=== PATIENT | male | born 1970 | race Caucasian/White ===

== ENCOUNTER 2017-05-16 11:52 | Emergency (ER) | payer MEDICAID ==
[2017-05-16 11:58] VITALS: BP 110/80; BMI 42.2
--- NOTE | 2017-05-16 12:45 | DR.GENAD ---
HPI - PCP Primary Care Physician: reg - Complaint/Symptoms Chief Complaint:: patient stated for the last 2 days he has been having epigastirc pain and its hard to swollow. - Source History Provided: Patient - Mode of Arrival Mode of Arrival: Ambulatory - Timing Onset of Chief Complaint: 05/14/17 PMH - PMH Past Medical History: Yes Past Medical History: Asthma, Diabetes, Hypertension, Schizophrenia Past Surgical History: Yes - Family History History of Family Medical Conditions: Yes Family Medical History: Diabetes Mellitus, Cancer, [place], Coronary Artery Disease, Heart Failure, Sudden Cardiac , Hypertension - Social History Does patient currently use any type of tobacco product: No Have you used tobacco products in the last 12 months: No Type of Tobacco Use: None Does any household member use tobacco: No Alcohol Use: Rarely Do you use any recreational Drugs:: Yes (thc) Lives With: Family Lives Where: Home - infectious screening In the last 2 months have you had wt loss of >10#?: NO Have you had fever, night sweats or hemotysis?: No Have you traveled outside the country in the last 6 months?: No Isolation: Standard ROS - Review of Systems Eyes: No Symptoms Reported ENTM: No Symptoms Reported Respiratoy: No Symptoms Reported Cardiovascular: No Symptoms Reported Gastrointestinal/Abdominal: No Symptoms Reported Genitourinary: No Symptoms Reported Neurological: No Symptoms Reported Musculoskeletal: No Symptoms Reported Integumentary: No Symptoms Reported Hematologic/Lymphatic: No Symptoms Reported Endocrine: No Symptoms Reported Psychiatric: No Symptoms Reported All Other Systems: Reviewed and Negative PE - Vital Signs Vitals: Temperature 98.0 F Pulse Rate 96 Respiratory Rate 16 Blood Pressure [Right Arm] 147/82 Blood Pressure 110/80 O2 Sat by Pulse Oximetry 99 - General Limitations: No Limitations General Appearance: Alert, In No Apparent Distress - Head Head Exam: Normal Inspection, Atraumatic - Eyes Eye exam: Normal Appearance, PERRL, EOMI - ENT ENT Exam: Normal Exam External Ear Exam: Normal External Inspection TM/Canal Exam: Bilateral Normal Nose Exam: Normal Nose Exam Mouth Exam: Normal Inspection Throat Exam: Normal Inspection - Neck Neck Exam: Normal Inspection - Chest Chest Inspection: Normal Inspection - Respiratory Respiratory Exam: Normal Lung Sounds Bilat Respiratory Exam: Bilateral Clear to Auscultation - Cardiovascular Cardiovascular Exam: Regular Rate, Normal Rhythm - Abdominal Exam Abdominal Exam: Normal Inspection Abdominal Tenderness: Epigastrium - Extremities Extremities Exam: Normal Inspection - Back Back Exam: Normal Inspection - Neurologic Neurological Exam: Alert, Oriented X3, CN II-XII Intact - Psychiatric Psychiatric Exam: Normal Affect - Skin Skin Exam: Warm ROR - Labs Reviewed Result Diagrams: 05/16/17 12:48 05/16/17 12:48 Laboratory: WBC 13.3 X10^3/uL (3.6-10.0) H 05/16/17 12:48 RBC 5.25 X10^6/uL (4.7-6.0) 05/16/17 12:48 Hgb 14.2 g/dL (13.5-18.0) 05/16/17 12:48 Hct 41.2 % (42.0-54.0) L 05/16/17 12:48 MCV 78.5 fL (80.0-100.0) L 05/16/17 12:48 MCH 27.0 pg (27.0-34.0) 05/16/17 12:48 MCHC 34.4 g/dL (33.0-35.0) 05/16/17 12:48 RDW 14.6 % (11.6-16.5) 05/16/17 12:48 Plt Count 350 X10^3/uL (150.0-450.0) 05/16/17 12:48 MPV 7.3 fL (7.4-11.0) L 05/16/17 12:48 Neut % 66.7 % (42.0-75.0) 05/16/17 12:48 Lymph % 23.0 % (21.0-51.0) 05/16/17 12:48 [place] % 8.0 % (0.0-13.0) 05/16/17 12:48 Eos % 1.3 % (0.9-2.9) 05/16/17 12:48 Baso % 1.0 % (0.2-1.0) 05/16/17 12:48 Neut # 8.9 x10^3/uL (2.2-4.8) H 05/16/17 12:48 Lymph # 3.1 X10^3/uL (1.3-2.9) H 05/16/17 12:48 [place] # 1.1 x10^3/uL (0.3-0.8) H 05/16/17 12:48 Eos # 0.2 x10^3/uL (0.0-0.2) 05/16/17 12:48 Baso # 0.1 X10^3/uL (0.0-0.1) 05/16/17 12:48 Absolute Nucleated RBC 0.0 /100WBC 05/16/17 12:48 Sodium 140 mmol/L (136-145) 05/16/17 12:48 Corrected Sodium 141 mmol/L (136-145) 05/16/17 12:48 Potassium 4.0 mmol/L (3.5-5.1) 05/16/17 12:48 Chloride 103 mmol/L (98-107) 05/16/17 12:48 Carbon Dioxide 27.9 mmol/L (21-32) 05/16/17 12:48 BUN 17 mg/dL (7-18) 05/16/17 12:48 Creatinine 1.35 mg/dL (0.70-1.30) H 05/16/17 12:48 Est GFR (MDRD) Af Amer > 60 (>60) 05/16/17 12:48 Est GFR (MDRD) Non-Af 60 (>60) 05/16/17 12:48 Glucose 129 mg/dL (65-99) H 05/16/17 12:48 Calcium 9.1 mg/dL (8.5-10.1) 05/16/17 12:48 Corrected Calcium TNP 05/16/17 12:48 Total Bilirubin 0.30 mg/dL (0.2-1.0) 05/16/17 12:48 AST 22 Units/L (15-37) 05/16/17 12:48 ALT 30 Units/L (12-78) 05/16/17 12:48 Alkaline Phosphatase 52 Units/L (46-116) 05/16/17 12:48 C-Reactive Protein 14.90 mg/L (0-3.0) H 05/16/17 12:48 Total Protein 7.7 g/dL (6.4-8.2) 05/16/17 12:48 Albumin 3.7 g/dL (3.4-5.0) 05/16/17 12:48 Globulin 4.0 g/dL (2.5-4.5) 05/16/17 12:48 Albumin/Globulin Ratio 0.9 Ratio (1.1-2.1) L 05/16/17 12:48 Amylase 34 Units/L (25-115) 05/16/17 12:48 Lipase 122 Units/L (73-393) 05/16/17 12:48 H. pylori IgG Antibody Negative (NEGATIVE) 05/16/17 12:48 - XRAY XRAY Interpreted by: Radiologist (The visualized ortions of the lung bases are unremarkable. Diffuse fatty infiltration ofthe liver. No obvious liver lesions. A LARGE gallstone is again seen within the gallbladder without secondary sings to suggest cholecycstitis. The spleen, pancreas, and adrenals appear normal. 2.6cm left interpolar hypodense lesion appears unchanged and has Hounsfield units consistent with fluid. Other bilateral too small to characterize hypodense lesions. Punctate nonobstructing left inferior renal pole stone. Limited evaluation of the large yadira and small bowel secondary to collapse of oral contrast. Diverticulosis without evidence of diverticulitis. Remarining large and small bowel appear normal.) - Diagnosis Discharge Problem: Fatty infiltration of liver, Impacted gallstone of gallbladder, renal stones inferior pole left kidney - Discharge Plan Condition: Stable - Follow ups/Referrals Follow ups/Referrals: Yong Genao [Primary Care Provider] - 3 days - Instructions
[2017-05-16 13:07] LABS: BASOPHILS # (AUTO) 0.1 X10^3/uL (0.0-0.1); EOSINOPHILS # (AUTO) 0.2 x10^3/uL (0.0-0.2); EOSINOPHILS % (AUTO) 1.3 % (0.9-2.9); HEMATOCRIT 41.2 % (42.0-54.0); HEMOGLOBIN 14.2 g/dL (13.5-18.0); LYMPHOCYTES # (AUTO) 3.1 X10^3/uL (1.3-2.9); MEAN CORPUSCULAR HGB CONC 34.4 g/dL (33.0-35.0); MEAN CORPUSCULAR VOLUME 78.5 fL (80.0-100.0); MEAN PLATELET VOLUME 7.3 fL (7.4-11.0); MONOCYTES # (AUTO) 1.1 x10^3/uL (0.3-0.8); NEUTROPHILS # (AUTO) 8.9 x10^3/uL (2.2-4.8); NEUTROPHILS % (AUTO) 66.7 % (42.0-75.0); PLATELET COUNT 350 X10^3/uL (150.0-450.0); RED BLOOD COUNT 5.25 X10^6/uL (4.7-6.0); RED CELL DISTRIBUTION WIDTH 14.6 % (11.6-16.5); WHITE BLOOD COUNT 13.3 X10^3/uL (3.6-10.0)
[2017-05-16 13:18] LABS: ALANINE AMINOTRANSFERASE 30 Units/L (12-78); ALBUMIN 3.7 g/dL (3.4-5.0); ALKALINE PHOSPHATASE 52 Units/L (46-116); ASPARTATE AMINO TRANSFERASE 22 Units/L (15-37); BLOOD UREA NITROGEN 17 mg/dL (7-18); CALCIUM 9.1 mg/dL (8.5-10.1); CARBON DIOXIDE 27.9 mmol/L (21-32); CHLORIDE 103 mmol/L (98-107); COR NA(FOR HYPERGLY) 141 mmol/L (136-145); CREATININE 1.35 mg/dL (0.70-1.30); GLUCOSE 129 mg/dL (65-99); SODIUM 140 mmol/L (136-145); TOTAL PROTEIN 7.7 g/dL (6.4-8.2); eGFR BLACK RACES > 60 (>60); eGFR NON BLACK RACES 60 (>60)
--- NOTE | 2017-05-16 13:30 | RAD ---
HISTORY: Cough, chest pain Study: Chest two-view Comparison: April 29, 2015 Findings: The trachea is midline. The cardiac silhouette is unremarkable. The lungs are clear without focal i nfiltrate or effusion. The bony thorax is unremarkable. IMPRESSION: 1. No acute cardiopulmonary disease. Reported By:
[2017-05-16 13:36] LABS: AMYLASE 34 Units/L (25-115); LIPASE 122 Units/L (73-393)
[2017-05-16] MEDS ORDERED: NS 100 ML IV 100 ML IV ONE (13:47)
--- NOTE | 2017-05-16 15:30 | CT ---
HISTORY: Abdominal pain. Study: CT abdomen and pelvis with contrast Comparison: CT abdomen and dated May 14, 2014. Technique: Multiple axial images of the abdomen and pelvis were obtained from the lung bases to the pubic symphy sis after the administration of IV contrast. Dose reduction techniques including Automated Exposure Control (AEC) and adjustment of mA and kV were utilized. Findings: Limited study secondary to lack of oral contrast. The visualized portions of the lung bases are unremarkable. Diffuse fatty infiltration of the liver. No obvious liver lesions. A large gallstone is again seen within the gallbladder without secondary s igns to suggest cholecystitis. The spleen, pancreas, and adrenals appear normal. 2.6 cm left interpol ar hypodense lesion appears unchanged and has Hounsfield units consistent with fluid . Other bilatera l too small to characterize hypodense lesions . Punctate nonobstructing left inferior renal pole ston e. Limited evaluation of the large and small bowel secondary to collapse of lack of oral contrast. Di verticulosis without evidence of diverticulitis. Remaining large and small bowel appear normal. The appendix appears normal. The urinary bladder is grossly unremarkable. Degenerative changes of the sp ine, hips, and SI joints. IMPRESSION: 1. No CT evidence of acute abdominal/pelvic pathology. 2. Other chronic findings as above. Reported By:
== END 2017-05-16 16:22 | disposition home or self-care (01) ==
LOC: ER 12:06
DX: K80.20 Calculus of gallbladder without cholecystitis without obstruction (principal); K20.0 Eosinophilic esophagitis; K76.0 Fatty (change of) liver, not elsewhere classified; R10.13 Epigastric pain
CPT/HCPCS: 36415; 71020; 74177; 80053; 82150; 83690; 85025; 86140; 86677; 96365; 99283; A4222

== ENCOUNTER 2017-07-16 15:15 | Emergency (ER) | payer MEDICAID ==
[2017-07-16 15:33] VITALS: BMI 40.7
--- NOTE | 2017-07-16 15:43 | DR.GENAD ---
HPI - PCP Primary Care Physician: OLGA SCHMITZHEAR - Complaint/Symptoms Chief Complaint Doctors Comments: Patient states that he has dizziness with standing. He has always had some degree of dizziness but now it is more. Chief Complaint:: HAD CHEST PAIN TWO DAYS AGO AND NOW WHEN STANDING OR WALKING FEELS LIKE HE IS GONNA PASS OUT - Source History Provided: Patient - Mode of Arrival Mode of Arrival: Wheelchair - Timing Onset of Chief Complaint: 07/14/17 PMH - PMH Past Medical History: Yes Past Medical History: Arthritis, Asthma, Diabetes, Hypertension, Schizophrenia Past Surgical History: No - Family History History of Family Medical Conditions: Yes Family Medical History: Diabetes Mellitus, Cancer, [place], Coronary Artery Disease, Heart Failure, Sudden Cardiac , Hypertension - Social History Alcohol Use: None Do you use any recreational Drugs:: No Lives With: Family Lives Where: Home - infectious screening In the last 2 months have you had wt loss of >10#?: NO Have you had fever, night sweats or hemotysis?: No Have you traveled outside the country in the last 6 months?: No Isolation: Standard ROS - Review of Systems Eyes: No Symptoms Reported ENTM: No Symptoms Reported Respiratoy: No Symptoms Reported Cardiovascular: No Symptoms Reported Gastrointestinal/Abdominal: No Symptoms Reported Genitourinary: No Symptoms Reported Neurological: No Symptoms Reported Musculoskeletal: No Symptoms Reported Integumentary: No Symptoms Reported Hematologic/Lymphatic: No Symptoms Reported Endocrine: No Symptoms Reported Psychiatric: No Symptoms Reported All Other Systems: Reviewed and Negative PE - Vital Signs Vitals: Temperature 98.9 F Pulse Rate 110 Respiratory Rate 18 Blood Pressure [Right Arm] 147/82 Blood Pressure 102/72 O2 Sat by Pulse Oximetry 95 - General General Appearance: Alert, In No Apparent Distress - Head Head Exam: Normal Inspection, Atraumatic - Eyes Eye exam: Normal Appearance, PERRL, EOMI - ENT ENT Exam: Normal Exam External Ear Exam: Normal External Inspection TM/Canal Exam: Bilateral Normal Nose Exam: Normal Nose Exam Mouth Exam: Normal Inspection Throat Exam: Normal Inspection - Neck Neck Exam: Normal Inspection, Full ROM - Chest Chest Inspection: Normal Inspection - Respiratory Respiratory Exam: Normal Lung Sounds Bilat Respiratory Exam: Bilateral Clear to Auscultation - Cardiovascular Cardiovascular Exam: Regular Rate, Normal Rhythm - Abdominal Exam Abdominal Exam: Normal Inspection, Normal Bowel Sounds Abdominal Tenderness: negative: RUQ, RLQ, LUQ, LLQ, Epigastrium, Suprapubic, Diffuse, Mild, Moderate, Severe, Other - Extremities Extremities Exam: Normal Inspection - Back Back Exam: Normal Inspection - Neurologic Neurological Exam: Alert, Oriented X3, CN II-XII Intact - Psychiatric Psychiatric Exam: Normal Affect - Skin Skin Exam: Warm, Dry, Intact Course - Reevaluation 1st: Improved ROR - Labs Reviewed Laboratory Results Reviewed?: Yes (potassium low, preRenal azotemia) Result Diagrams: 07/16/17 15:50 07/16/17 15:50 Laboratory: WBC 17.2 X10^3/uL (3.6-10.0) H 07/16/17 15:50 RBC 5.47 X10^6/uL (4.7-6.0) 07/16/17 15:50 Hgb 15.0 g/dL (13.5-18.0) 07/16/17 15:50 Hct 42.9 % (42.0-54.0) 07/16/17 15:50 MCV 78.6 fL (80.0-100.0) L 07/16/17 15:50 MCH 27.4 pg (27.0-34.0) 07/16/17 15:50 MCHC 34.8 g/dL (33.0-35.0) 07/16/17 15:50 RDW 15.0 % (11.6-16.5) 07/16/17 15:50 Plt Count 399 X10^3/uL (150.0-450.0) 07/16/17 15:50 MPV 7.8 fL (7.4-11.0) 07/16/17 15:50 Neut % 73.3 % (42.0-75.0) 07/16/17 15:50 Lymph % 17.5 % (21.0-51.0) L 07/16/17 15:50 [place] % 7.4 % (0.0-13.0) 07/16/17 15:50 Eos % 0.9 % (0.9-2.9) 07/16/17 15:50 Baso % 0.9 % (0.2-1.0) 07/16/17 15:50 Neut # 12.7 x10^3/uL (2.2-4.8) H 07/16/17 15:50 Lymph # 3.0 X10^3/uL (1.3-2.9) H 07/16/17 15:50 [place] # 1.3 x10^3/uL (0.3-0.8) H 07/16/17 15:50 Eos # 0.2 x10^3/uL (0.0-0.2) 07/16/17 15:50 Baso # 0.1 X10^3/uL (0.0-0.1) 07/16/17 15:50 Absolute Nucleated RBC 0.0 /100WBC 07/16/17 15:50 INR Target Range - 07/16/17 15:50 INR 1.06 (0.8-1.3) 07/16/17 15:50 PTT 29.3 SECONDS (22.9-36.5) 07/16/17 15:50 PTT Comment - 07/16/17 15:50 Sodium 134 mmol/L (136-145) L 07/16/17 15:50 Corrected Sodium 136 mmol/L (136-145) 07/16/17 15:50 Potassium 3.3 mmol/L (3.5-5.1) L 07/16/17 15:50 Chloride 99 mmol/L (98-107) 07/16/17 15:50 Carbon Dioxide 24.7 mmol/L (21-32) 07/16/17 15:50 BUN 39 mg/dL (7-18) H 07/16/17 15:50 Creatinine 3.22 mg/dL (0.70-1.30) H 07/16/17 15:50 Est GFR (MDRD) Af Amer 27 (>60) L 07/16/17 15:50 Est GFR (MDRD) Non-Af 22 (>60) L 07/16/17 15:50 Glucose 168 mg/dL (65-99) H 07/16/17 15:50 Calcium 9.1 mg/dL (8.5-10.1) 07/16/17 15:50 Corrected Calcium TNP 07/16/17 15:50 Magnesium 1.8 mg/dL (1.7-2.9) 07/16/17 15:50 Total Bilirubin 0.40 mg/dL (0.2-1.0) 07/16/17 15:50 AST 18 Units/L (15-37) 07/16/17 15:50 ALT 25 Units/L (12-78) 07/16/17 15:50 Alkaline Phosphatase 59 Units/L (46-116) 07/16/17 15:50 Creatine Kinase 132 Units/L (39-308) 07/16/17 15:50 CK-MB (CK-2) 1.3 ng/mL (0-4.0) 07/16/17 15:50 CK/CKMB % Calc 1.0 % (<4) 07/16/17 15:50 Troponin I < 0.02 ng/mL (0-1.5) 07/16/17 15:50 Total Protein 8.0 g/dL (6.4-8.2) 07/16/17 15:50 Albumin 4.1 g/dL (3.4-5.0) 07/16/17 15:50 Globulin 3.9 g/dL (2.5-4.5) 07/16/17 15:50 Albumin/Globulin Ratio 1.1 Ratio (1.1-2.1) 07/16/17 15:50 - Diagnosis Discharge Problem: Dehydration, Prerenal azotemia, Hypokalemia - Discharge Plan Condition: Stable - Follow ups/Referrals Follow ups/Referrals: FARHANA MADDOX [Primary Care Provider] - 3 days - Instructions
[2017-07-16] MEDS ORDERED: NS 1000 ML 1,000 ML IV ONE ×2 (15:54→17:33)
[2017-07-16] MEDS ORDERED: NS 1000 ML 1,000 ML ONE ×2 (15:59→17:27)
[2017-07-16 16:01] LABS: BASOPHILS # (AUTO) 0.1 X10^3/uL (0.0-0.1); BASOPHILS % (AUTO) 0.9 % (0.2-1.0); EOSINOPHILS # (AUTO) 0.2 x10^3/uL (0.0-0.2); EOSINOPHILS % (AUTO) 0.9 % (0.9-2.9); HEMATOCRIT 42.9 % (42.0-54.0); LYMPHOCYTES % (AUTO) 17.5 % (21.0-51.0); MEAN CORPUSCULAR HEMOGLOBIN 27.4 pg (27.0-34.0); MEAN CORPUSCULAR HGB CONC 34.8 g/dL (33.0-35.0); MEAN CORPUSCULAR VOLUME 78.6 fL (80.0-100.0); MEAN PLATELET VOLUME 7.8 fL (7.4-11.0); MONOCYTES # (AUTO) 1.3 x10^3/uL (0.3-0.8); MONOCYTES % (AUTO) 7.4 % (0.0-13.0); NEUTROPHILS # (AUTO) 12.7 x10^3/uL (2.2-4.8); NEUTROPHILS % (AUTO) 73.3 % (42.0-75.0); PLATELET COUNT 399 X10^3/uL (150.0-450.0); RED BLOOD COUNT 5.47 X10^6/uL (4.7-6.0); WHITE BLOOD COUNT 17.2 X10^3/uL (3.6-10.0)
[2017-07-16 16:13] LABS: ALANINE AMINOTRANSFERASE 25 Units/L (12-78); ALBUMIN 4.1 g/dL (3.4-5.0); ALKALINE PHOSPHATASE 59 Units/L (46-116); ASPARTATE AMINO TRANSFERASE 18 Units/L (15-37); BLOOD UREA NITROGEN 39 mg/dL (7-18); CALCIUM 9.1 mg/dL (8.5-10.1); CARBON DIOXIDE 24.7 mmol/L (21-32); CHLORIDE 99 mmol/L (98-107); COR NA(FOR HYPERGLY) 136 mmol/L (136-145); CREATININE 3.22 mg/dL (0.70-1.30); MAGNESIUM 1.8 mg/dL (1.7-2.9); SODIUM 134 mmol/L (136-145); eGFR BLACK RACES 27 (>60); eGFR NON BLACK RACES 22 (>60)
[2017-07-16 16:27] LABS: CREATINE KINASE 132 Units/L (39-308); CREATINE KINASE MB 1.3 ng/mL (0-4.0); TROPONIN I < 0.02 ng/mL (0-1.5)
--- NOTE | 2017-07-16 16:42 | RAD ---
Chest, one-view Indication: Chest pain Comparison: 05/16/2017 Findings: Heart size is normal. No focal consolidation, effusion or pneumothorax is identified. No ac iglesia osseous abnormality is seen. Impression: No acute chest process. Reported By:
[2017-07-16] MEDS ORDERED: K-DUR TAB 20 MEQ PO STA (19:02)
[2017-07-16] MEDS ORDERED: K-DUR TAB 20 MEQ PO ONE (19:04)
[2017-07-16 19:21] VITALS: BP 116/76
== END 2017-07-16 19:15 | disposition home or self-care (01) ==
LOC: ER 15:37
DX: E86.0 Dehydration (principal); R79.89 Other specified abnormal findings of blood chemistry; E87.6 Hypokalemia; R07.89 Other chest pain
CPT/HCPCS: 36415; 71010; 80053; 82550; 82553; 83735; 84484; 85025; 85610; 85730; 93005; 93010; 96365; 96367; 99283; 99285; A4216; A4222